=== PATIENT | male | born 1970 | race African-American/Black ===

== ENCOUNTER 2022-12-23 06:20 | Emergency (ER) | payer BC ==
[~2022-12-23] VITALS: Ht 175.3 cm; Wt 87.0 kg
[2022-12-23 06:48] VITALS: BP 179/124; PULSE 101; RESP 16; O2SAT 98
[2022-12-23] MEDS ORDERED: SULF1TAB48 PO (07:43)
[2022-12-23] MEDS ORDERED: CEPH500T PO (07:43)
== END 2022-12-23 08:01 | disposition home or self-care (01) ==
LOC: ER 06:20
DX: M70.32 Other bursitis of elbow, left elbow (principal)
CPT/HCPCS: 99281; 99283